=== PATIENT | male | born 1950 | race Caucasian/White ===

== ENCOUNTER 2018-11-25 01:45 | Emergency (ER) | payer OTHER, MEDICARE ==
--- NOTE | 2018-11-25 02:02 | ER Document Report ---
ED General - General Stated Complaint: FAST HEART RATE Time Seen by Provider: 11/25/18 01:51 Notes: Patient is a 68-year-old male who says that he woke up and felt like his heart was beating hard and fast. During this episode he felt a little bit of burning in his chest but did not have any actual chest pain. He called the events. He admits that he was in A. fib with RVR with rate going between 125 and 180. They gave him 25 mg of Cardizem and his rate became under control and his symptoms went away. Currently patient has no chest pain. He denies any palpitations. Says he feels well. He says he thinks he did have atrial fibrillation once before several years ago. He has not had it since then. He said that time he was briefly placed on amiodarone but was then taken off for a few months later because he had no recurrence of any arrhythmias. He does have history of coronary disease. He had cardiac stent placed in 2001. He also had 2 more stents placed in 2003. He denies any recurrent chest pain or difficulty breathing or symptoms leading up to this event tonight. He currently is chest pain-free and denies any difficulty breathing and says he feels well now that his heart rate is under control. No recent fevers or infections. - Related Data Allergies/Adverse Reactions: No Known Allergies Allergy (Unverified 11/25/18 04:13) Past Medical History - Social History Smoking Status: Unknown if Ever Smoked Frequency of alcohol use: None Drug Abuse: None Family History: Reviewed & Not Pertinent Review of Systems - Review of Systems Notes: My Normal Review Basic REVIEW OF SYSTEMS: CONSTITUTIONAL : Denies fever, chills, or sweats. Denies recent illness. EENT: Denies eye, ear, throat, or mouth pain or symptoms. Denies nasal or sinus congestion. CARDIOVASCULAR: Burning sensation in chest when heart rate was fast. RESPIRATORY: Denies cough, cold, or chest congestion. Denies shortness of breath, difficulty breathing, or wheezing. GASTROINTESTINAL: Denies abdominal pain. Denies nausea, vomiting, or diarrhea. MUSCULOSKELETAL: Denies neck or back pain or joint pain or swelling. SKIN: Denies rash or skin lesions. NEUROLOGICAL: Denies altered mental status or loss of consciousness. Denies headache. Denies weakness or paralysis or loss of use of either side. Denies problems with gait or speech. Denies sensory or motor loss. ALL OTHER SYSTEMS REVIEWED AND NEGATIVE. Physical Exam - Vital signs Vitals: Resp BP Pulse Ox 20 140/93 H 93 11/25/18 02:01 11/25/18 02:01 11/25/18 02:01 - Notes Notes: General Appearance: Well nourished, alert, cooperative, no acute distress, no obvious discomfort. Well-appearing Vitals: reviewed, See vital signs table. Head: no swelling or tenderness to the head Eyes: PERRL, EOMI, Conjuctiva clear Mouth: No decreasd moisture Lungs: No wheezing, No rales, No rhonci, No accessory muscle use, good air exchange bilaterally. Heart: Normal rate, Irregular rythm, No murmur, no rub Abdomen: Normal BS, soft, No rigidity, No abdominal tenderness, No guarding, no rebound, no abdominal masses, no organomegaly Extremities: strength 5/5 in all extremities, good pulses in all extremities, no swelling or tenderness in the extremities, no edema. Skin: warm, dry, appropriate color, no rash Neuro: speech clear, oriented x 3, normal affect, responds appropriately to questions. Course - Re-evaluation Re-evalutation: 11/25/18 04:41 EKG #2 is reviewed and interpreted by me. EKG shows atrial fibrillation with a rate of [address] segment elevation or depression. No ischemic T wave inversions. QRS duration and QT intervals are within normal range. 11/25/18 09:01 Patient's heart rate remained control his entire time here in the ER. Remained in A. fib with a normal rate. He denies any chest pain. Is been asymptomatic since arrival to the ED. I did not have to give any further medications. His troponin and delta troponin are negative. His chest x-ray is normal. Feel he is safe to be discharged home. His CHADDS2 score is 3. I therefore recommended anticoagulation to him. I talked about the risks and benefits of antico agulation and patient agrees to go forward with being started on Eliquis. I have given first dose here and he will get the prescription filled this morning to continue taking his medication. He is already on metoprolol 50 mg a day. I continue to encourage him to continue to take this to help with his rate control. He said he will call his third mate Tuesday morning to make a close follow-up appointment. Patient to return to ER if is any chest pain, difficulty breathing, recurrence of palpitations. Patient agrees with plan and will be discharged home. Dictation of this chart was performed using voice recognition software; therefore, there may be some unintended grammatical errors. - Vital Signs Vital signs: Temp Pulse Resp BP Pulse Ox 19 121/80 96 11/25/18 06:01 11/25/18 06:01 11/25/18 06:01 - Laboratory Result Diagrams: 11/25/18 02:20 11/25/18 02:20 Laboratory results interpreted by me: 11/25/18 11/25/18 02:20 02:20 Plt Count 149 L Monocytes % 15.6 H Potassium 3.5 L BUN 22 H Glucose 143 H Magnesium 1.4 L - EKG Interpretation by Me Additional EKG results interpreted by me: 11/25/18 02:01 EKG is reviewed and interpreted by me. EKG shows A. fib with a rate of [address] segment elevation or depression. No ischemic T wave inversions. QRS duration QT intervals are within normal range. No old EKG available for comparison. Discharge - Discharge Clinical Impression: Fibrillation, atrial Qualifiers: Atrial fibrillation type: persistent Qualified Code(s): I48.1 - Persistent atrial fibrillation Condition: Good Disposition: HOME, SELF-CARE Additional Instructions: You have an arrythmia called atrial fibrillation (A. fib). Because you have Afib you need to be on a blood thinning medication to help prevent formation of blood clots in your heart. This medication is called Eliquis. Please take the Eliquis as prescribed. please continue to take your daily aspirin. Please follow up with your heart doctor this coming week for reevaluation. Eliquis does increase your risk for bleeding. Please return to the ER immediately if you fall and hit your head, have abdominal pain, vomiting of blood, coughing of blood, or feel unwell. lease return to the ER immediately if you develop chest pain, difficulty breathing, or feel that your heat is beating rapidly. Prescriptions: Apixaban [Eliquis 5 mg Tablet] 5 mg PO BID #60 tablet
--- NOTE | 2018-11-25 02:30 | RADIOLOGY REPORT (SQ) ---
EXAM DESCRIPTION: XR CHEST 1 VIEW COMPLETED DATE/TME: 11/25/2018 02:00 CLINICAL HISTORY: 68 years Male, a. fib with RVR COMPARISON: None. NUMBER OF VIEWS/TECHNIQUE: 1/AP FINDINGS: Adequate lung volume, small left basilar atelectasis or scar, normal cardiac silhouette, and intact bony thorax. IMPRESSION: No acute cardiopulmonary findings.
[2018-11-25 02:31] LABS: ABSOLUTE EOSINOPHILS # (AUTO) 0.1 10^3/uL (0.0-0.6); ABSOLUTE LYMPHOCYTES (AUTO) 1.4 10^3/uL (0.5-4.7); ABSOLUTE MONOCYTES (AUTO) 0.7 10^3/uL (0.1-1.4); ABSOLUTE NEUT (AUTO) 2.3 10^3/uL (1.7-8.2); BASOPHILS % (AUTO) 0.9 % (0-2); EOSINOPHILS % (AUTO) 1.2 % (0-6); HEMATOCRIT 40.4 % (37.9-51.0); HEMOGLOBIN 14.2 g/dL (13.5-17.0); LYMPHOCYTES % (AUTO) 31.5 % (13-45); MEAN CORPUSCULAR HEMOGLOBIN 31.7 pg (27.0-33.4); MEAN CORPUSCULAR HGB CONC 35.1 g/dL (32.0-36.0); MEAN CORPUSCULAR VOLUME 90 fl (80-97); MONOCYTES % (AUTO) 15.6 % (3-13); PLATELET COUNT 149 10^3/uL (150-450); RED BLOOD COUNT 4.48 10^6/uL (4.35-5.55); RED CELL DISTRIBUTION WIDTH 13.7 % (11.5-14.0); SEGMENTED NEUTROPHILS % (AUTO) 50.8 % (42-78); TOTAL CELLS COUNTED % (AUTO) 100 %; WHITE BLOOD COUNT 4.6 10^3/uL (4.0-10.5)
[2018-11-25 02:43] LABS: ALANINE AMINOTRANSFERASE 21 U/L (21-72); ALBUMIN 3.8 g/dL (3.5-5.0); ALKALINE PHOSPHATASE 73 U/L (38-126); ANION GAP 13 (5-19); ASPARTATE AMINO TRANSFERASE 31 U/L (17-59); BILIRUBIN,DIRECT 0.2 mg/dL (0.0-0.4); BILIRUBIN,TOTAL 0.2 mg/dL (0.2-1.3); BLOOD UREA NITROGEN 22 mg/dL (7-20); CALCIUM 9.7 mg/dL (8.4-10.2); CARBON DIOXIDE 24 mmol/L (22-30); CHLORIDE 105 mmol/L (98-107); GLUCOSE 143 mg/dL (75-110); POTASSIUM 3.5 mmol/L (3.6-5.0); SODIUM 141.7 mmol/L (137-145); TOTAL PROTEIN 6.6 g/dL (6.3-8.2)
[2018-11-25] MEDS ORDERED: APIXABAN 5 MG TABLET PO ONE (05:41)
[2018-11-25 06:15] VITALS: BP 121/80
--- NOTE | 2018-11-25 12:43 | EKG REPORT ---
SEVERITY:- ABNORMAL ECG - BORDERLINE T ABNORMALITIES, ANTERIOR LEADS SINUS RHYTHM : Confirmed by: Kavitha Melendez MD 25-Nov-2018 12:42:48
== END 2018-11-25 06:18 | disposition home or self-care (01) ==
LOC: ER 01:45
DX: I48.1 Persistent atrial fibrillation (principal); R00.2 Palpitations; Z79.899 Other long term (current) drug therapy
CPT/HCPCS: 36415; 71045; 80053; 83735; 84484; 85025; 93005; 93010; 99285

== ENCOUNTER 2018-12-15 03:48 | Emergency (ER) | payer OTHER, MEDICARE ==
[2018-12-15 03:58] VITALS: BP 131/82
--- NOTE | 2018-12-15 07:14 | ER Document Report ---
ED General - General Chief Complaint: Foot Pain Stated Complaint: LEFT FOOT PAIN Time Seen by Provider: 12/15/18 06:23 TRAVEL OUTSIDE OF THE [place] IN LAST 30 DAYS: No - HPI Patient complains to provider of: Left foot pain Notes: Patient coming in for evaluation of the pain states ongoing for the last 2 days. Patient states some slight swelling was consistent with his gout flares in the past. Patient states most pain is in the top of the foot and base of the ankle. Patient denies any trauma denies any fevers chills nausea vomiting diarrhea patient states the pain is worse with ambulating. 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 - Related Data Allergies/Adverse Reactions: No Known Allergies Allergy (Unverified 11/25/18 04:13) Past Medical History - Social History Smoking Status: Unknown if Ever Smoked Family History: Reviewed & Not Pertinent - Past Medical History Cardiac Medical History: Reports: Hx Hypertension Endocrine Medical History: Reports: Hx Diabetes Mellitus Type 2 Renal/ Medical History: Denies: Hx Peritoneal Dialysis Past Surgical History: Reports: Hx Cardiac Surgery, Hx Orthopedic Surgery - RBKA Review of Systems - Review of Systems Constitutional: No symptoms reported EENT: No symptoms reported Cardiovascular: No symptoms reported Respiratory: No symptoms reported Gastrointestinal: No symptoms reported Genitourinary: No symptoms reported Male Genitourinary: No symptoms reported Musculoskeletal: No symptoms reported Skin: No symptoms reported Hematologic/Lymphatic: No symptoms reported Neurological/Psychological: No symptoms reported Physical Exam - Vital signs Vitals: Temp Pulse Resp BP Pulse Ox 98 F 106 H 16 131/82 H 96 12/15/18 03:56 12/15/18 03:56 12/15/18 03:56 12/15/18 03:56 12/15/18 03:56 Interpretation: Normal - General General appearance: Appears well, Alert - HEENT Head: Normocephalic, Atraumatic Eyes: Normal Pupils: PERRL - Respiratory Respiratory status: No respiratory distress Chest status: Nontender Breath sounds: Normal Chest palpation: Normal - Cardiovascular Rhythm: Regular Heart sounds: Normal auscultation Murmur: No - Abdominal Inspection: Normal Distension: No distension Bowel sounds: Normal Tenderness: Nontender Organomegaly: No organomegaly - Back Back: Normal, Nontender - Extremities General upper extremity: Normal inspection, Nontender, Normal color, Normal ROM, Normal temperature General lower extremity: Nontender, Normal color, Normal ROM, Normal temperature, Normal weight bearing. No: Normal inspection - Right BKA patient's left ankle is slightly warm on the dorsum of the foot there is no signs of cellulitis or infection there is some slight swelling, Scott's sign - Neurological Neuro grossly intact: Yes Cognition: Normal Orientation: AAOx4 Boy Coma Scale Eye Opening: Spontaneous [place] Coma Scale Verbal: Oriented Boy Coma Scale Motor: Obeys Commands [place] Coma Scale Total: 15 Speech: Normal Motor strength normal: LUE, RUE, LLE, RLE Sensory: Normal - Psychological Associated symptoms: Normal affect, Normal mood - Skin Skin Temperature: Warm Skin Moisture: Dry Skin Color: Normal Course - Re-evaluation Re-evalutation: 12/15/18 14:52 Examination the patient's foot does not reveal any signs of infection there is some slight erythema possibly consistent stent with a beginning of a gout flare. Patient states this is similar to her flares in the past therefore did recommend treatment with Tylenol ice rest change in diet will give Ultram for severe pain. Patient is on Eliquis at this time will hold off any NSAID therapy. Patient states understanding also states understanding to follow-up PCP - Vital Signs Vital signs: Temp Pulse Resp BP Pulse Ox 98 F 106 H 16 131/82 H 96 12/15/18 03:56 12/15/18 03:56 12/15/18 03:56 12/15/18 03:56 12/15/18 03:56 Discharge - Discharge Clinical Impression: Ankle pain Condition: Good Disposition: HOME, SELF-CARE Instructions: Gout ([facility]), Gout Diet ([facility]), Ice & Elevation ([facility]), Oral Narcotic Medication ([facility]) Additional Instructions: Take Ultram and Tylenol tablet with your pain follow-up with your primary care physician today call them to schedule appointment on Tuesday. Prescriptions: Acetaminophen [Pain & Fever] 1,000 mg PO Q6 PRN #30 tablet PRN Reason: Tramadol HCl [Ultram 50 mg Tablet] 50 mg PO ASDIR PRN #20 tablet PRN Reason:
== END 2018-12-15 07:28 | disposition home or self-care (01) ==
LOC: ER 03:48
DX: M25.572 Pain in left ankle and joints of left foot (principal); M79.672 Pain in left foot; L53.9 Erythematous condition, unspecified; Z89.511 Acquired absence of right leg below knee; M79.89 Other specified soft tissue disorders; E11.9 Type 2 diabetes mellitus without complications; I10 Essential (primary) hypertension; Z79.01 Long term (current) use of anticoagulants
CPT/HCPCS: 99283

== ENCOUNTER 2019-01-23 23:08 | Emergency (ER) | payer OTHER, MEDICARE ==
--- NOTE | 2019-01-24 01:50 | ER Document Report ---
ED General - General Chief Complaint: Wrist Pain Stated Complaint: WRIST INJURY Time Seen by Provider: 01/24/19 01:23 TRAVEL OUTSIDE OF THE [place] IN LAST 30 DAYS: No - HPI Notes: Patient is a 68-year-old male that presents to the emergency department for chief complaint of left wrist pain. Patient reports increasing pain in his left wrist over the last few days. He has been wearing a cockup wrist splint and taking extra strength Tylenol with minimal improvement of his symptoms. He states he has a history of gout but has never had it anywhere but his feet. He did take prednisone 20 mg this morning because he was concerned that his wrist pain may be from gout. He states this did not help as well. He denies any fevers or chills. He states the pain is sharp and worse with movement. He states it has become more swollen today with increased redness. He is a type II diabetic and states his blood glucose has been running around 109 today. He denies any direct injury to the wrist but states he types often which has been irritating recently. Past Medical History: Diabetes, gout Past Surgical History: Reviewed in chart Social History: Denies tobacco and alcohol use Family History: Reviewed and noncontributory for presenting illness Allergies: Reviewed, see documented allergy list. REVIEW OF SYSTEMS: CONSTITUTIONAL : No fever No chills No diaphoresis No recent illness EENT: No vision changes No congestion No sore throat CARDIOVASCULAR: No chest pain No palpitations RESPIRATORY: No shortness of breath No cough No difficulty breathing GASTROINTESTINAL: No abdominal pain No nausea No vomiting No diarrhea GENITOURINARY: No dysuria No hematuria No difficulty urinating MUSCULOSKELETAL: No back pain No leg pain Left wrist pain SKIN: No rashes No lesions LYMPHATIC: No swollen, enlarged glands. NEUROLOGICAL: No lightheadedness No headache No weakness No paresthesias PSYCHIATRIC: No anxiety No depression PHYSICAL EXAMINATION: Vital signs reviewed, nursing noted reviewed. GENERAL: Well-appearing, well-nourished and in no acute distress. HEAD: Atraumatic, normocephalic. EYES: Eyes appear normal, extraocular movements intact, sclera anicteric, conjunctiva are normal. ENT: nares patent, oropharynx clear without exudates. Moist mucous membranes. NECK: Normal range of motion, supple without lymphadenopathy LUNGS: Breath sounds clear to auscultation bilaterally and equal. No wheezes rales or rhonchi. HEART: Regular rate and rhythm without murmurs ABDOMEN: Soft, nontender, normoactive bowel sounds. No rebound, guarding, or rigidity. No masses appreciated. EXTREMITIES: Left wrist tenderness to palpation diffusely and with range of motion. Limited range of motion to left wrist secondary to pain, erythema to left wrist with mild calor. No bony deformity. Normal left elbow exam. No left hand or digit tenderness. NEUROLOGICAL: No focal neurological deficits. Moves all extremities spontaneously Motor and sensory grossly intact on exam. PSYCH: Normal mood, normal affect. SKIN: Warm, Dry, normal turgor, erythema to left wrist - Related Data Allergies/Adverse Reactions: No Known Allergies Allergy (Unverified 11/25/18 04:13) Past Medical History - Social History Smoking Status: Never Smoker Family History: Reviewed & Not Pertinent - Past Medical History Cardiac Medical History: Reports: Hx Hypertension Endocrine Medical History: Reports: Hx Diabetes Mellitus Type 2 Renal/ Medical History: Denies: Hx Peritoneal Dialysis Past Surgical History: Reports: Hx Cardiac Surgery, Hx Orthopedic Surgery - RBKA Physical Exam - Vital signs Vitals: Temp Pulse Resp BP Pulse Ox 98.3 F 82 18 186/92 H 93 01/23/19 23:14 01/23/19 23:14 01/23/19 23:14 01/23/19 23:14 01/23/19 23:14 Course - Re-evaluation Re-evalutation: 01/24/19 01:50 Vitals reviewed. Nursing notes reviewed. Patient is afebrile and nontoxic in appearance. He does have a history of diabetes increasing his risk of septic ar thritis. He took Tylenol just prior to coming into the emergency room and states he is driving therefore he does not want any more pain medication currently. He has no history of gout in his wrist and lab work will be obtained to evaluate for possible underlying septic arthritis. 01/24/19 03:25 Patient's lab work shows very slight elevation of his WBC count which may be related to the prednisone he took at home. He has a normal CRP. His ESR is normal for age adjusted values. X-ray shows arthritis with no periosteal changes to suggest osteomyelitis. Given patient's clinical picture and lab work I do not currently suspect septic arthritis. He will be started on prednisone and [place] for his acute gouty flare. He was given a dose of colchicine in the emergency room. Patient was counseled on returning to the emergency room for increased pain, swelling, redness or fevers. He will otherwise follow with primary care for close outpatient reevaluation. Laboratory 01/24/19 01/24/19 02:12 02:12 WBC 12.3 H RBC 4.74 Hgb 15.1 Hct 43.3 MCV 92 MCH 31.9 MCHC 34.8 RDW 14.4 H Plt Count 205 Seg Neutrophils % 71.0 Lymphocytes % 17.0 Monocytes % 11.1 Eosinophils % 0.4 Basophils % 0.5 Absolute Neutrophils 8.8 H Absolute Lymphocytes 2.1 Absolute Monocytes 1.4 Absolute Eosinophils 0.1 Absolute Basophils 0.1 ESR 36 H Sodium 138.8 Potassium 4.2 Chloride 102 Carbon Dioxide 24 Anion Gap 13 BUN 31 H Creatinine 1.04 Est GFR ( Amer) > 60 Est GFR (Non-Af Amer) > 60 Glucose 137 H Calcium 10.3 H Total Bilirubin 0.3 Direct Bilirubin 0.3 Neonat Total Bilirubin Not Reportable Neonat Direct Bilirubin Not Reportable Neonat Indirect Bili Not Reportable AST 14 L ALT 28 Alkaline Phosphatase 65 C-Reactive Protein 8.8 Total Protein 8.0 Albumin 4.8 Wrist X-Ray 01/24/19 01:45 IMPRESSION: Degenerative change radiocarpal joint copyright 2011 [employer]- All Rights Reserved - Vital Signs Vital signs: Temp Pulse Resp BP Pulse Ox 98.3 F 82 18 186/92 H 93 01/23/19 23:14 01/23/19 23:14 01/23/19 23:14 01/23/19 23:14 01/23/19 23:14 - Laboratory Result Diagrams: 01/24/19 02:12 01/24/19 02:12 Laboratory results interpreted by me: 01/24/19 01/24/19 02:12 02:12 WBC 12.3 H RDW 14.4 H Absolute Neutrophils 8.8 H ESR 36 H BUN 31 H Glucose 137 H Calcium 10.3 H AST 14 L Discharge - Discharge Clinical Impression: Gout of wrist Qualifiers: Gout etiology: other secondary cause Chronicity: acute Laterality: left Qualified Code(s): M10.432 - Other secondary gout, left wrist Condition: Stable Disposition: HOME, SELF-CARE Instructions: Gout ([facility]), Gout Diet ([facility]), Family Physicians / Practices Additional Instructions: Please return to the emergency department if you have any worsening, or concern of your symptoms. Please return to the emergency department if you develop chest pain, difficulty breathing, severe abdominal pain, or ongoing vomiting. Please follow-up with your primary care physician in 2-3 days and any other recommended physicians. If prescribed, take all medications as directed. If you have any questions or concerns do not hesitate to return the emergency department for evaluation. Keep your wrist elevated and use ice to help with the swelling The prednisone will elevate your blood sugar so while you are taking it you need to abide by a good diabetic diet and monitor your blood sugar at home daily. If you develop increased redness, pain, swelling, or fevers please return to the emergency room for further evaluation Prescriptions: Prednisone [Deltasone 20 mg Tablet] 2 tab PO DAILY 5 Days tablet
[2019-01-24 02:27] LABS: ABSOLUTE BASOPHILS # (AUTO) 0.1 10^3/uL (0.0-0.2); ABSOLUTE EOSINOPHILS # (AUTO) 0.1 10^3/uL (0.0-0.6); ABSOLUTE LYMPHOCYTES (AUTO) 2.1 10^3/uL (0.5-4.7); ABSOLUTE MONOCYTES (AUTO) 1.4 10^3/uL (0.1-1.4); ABSOLUTE NEUT (AUTO) 8.8 10^3/uL (1.7-8.2); BASOPHILS % (AUTO) 0.5 % (0-2); EOSINOPHILS % (AUTO) 0.4 % (0-6); HEMATOCRIT 43.3 % (37.9-51.0); HEMOGLOBIN 15.1 g/dL (13.5-17.0); MEAN CORPUSCULAR HEMOGLOBIN 31.9 pg (27.0-33.4); MEAN CORPUSCULAR HGB CONC 34.8 g/dL (32.0-36.0); MEAN CORPUSCULAR VOLUME 92 fl (80-97); MONOCYTES % (AUTO) 11.1 % (3-13); PLATELET COUNT 205 10^3/uL (150-450); RED BLOOD COUNT 4.74 10^6/uL (4.35-5.55); RED CELL DISTRIBUTION WIDTH 14.4 % (11.5-14.0); TOTAL CELLS COUNTED % (AUTO) 100 %; WHITE BLOOD COUNT 12.3 10^3/uL (4.0-10.5)
--- NOTE | 2019-01-24 02:43 | RADIOLOGY REPORT (SQ) ---
EXAM DESCRIPTION: XR WRIST 3 OR MORE VIEWS COMPLETED DATE/TME: 01/24/2019 01:45 CLINICAL HISTORY: 68 years, Male, wrist pain COMPARISON: None. NUMBER OF VIEWS: 4 TECHNIQUE: 4 view left wrist LIMITATIONS: None. FINDINGS: Negative for acute fracture or dislocation. Degenerative changes of the radiocarpal joint. Soft tissues are unremarkable IMPRESSION: Degenerative change radiocarpal joint copyright 2010 [employer]- All Rights Reserved
[2019-01-24 02:53] LABS: ALANINE AMINOTRANSFERASE 28 U/L (21-72); ALBUMIN 4.8 g/dL (3.5-5.0); ALKALINE PHOSPHATASE 65 U/L (38-126); ANION GAP 13 (5-19); ASPARTATE AMINO TRANSFERASE 14 U/L (17-59); BILIRUBIN,DIRECT 0.3 mg/dL (0.0-0.4); BILIRUBIN,TOTAL 0.3 mg/dL (0.2-1.3); BLOOD UREA NITROGEN 31 mg/dL (7-20); C-REACTIVE PROTEIN 8.8 mg/L (<10.0); CALCIUM 10.3 mg/dL (8.4-10.2); CARBON DIOXIDE 24 mmol/L (22-30); CHLORIDE 102 mmol/L (98-107); GLUCOSE 137 mg/dL (75-110); POTASSIUM 4.2 mmol/L (3.6-5.0); SODIUM 138.8 mmol/L (137-145)
[2019-01-24 03:03] LABS: ERYTHROCYTE SEDIMENTATION RATE 36 mm/hr (0-20)
[2019-01-24] MEDS ORDERED: HYDROCODONE/ACETAMINOPHEN 5-325 MG (6 TAB/ER DISP) PO PRN (03:22)
[2019-01-24] MEDS ORDERED: COLCHICINE 0.6 MG TABLET PO ONE (03:23)
[2019-01-24 03:37] VITALS: BP 147/82
== END 2019-01-24 03:37 | disposition home or self-care (01) ==
LOC: ER 23:08
DX: M10.432 Other secondary gout, left wrist (principal); E11.9 Type 2 diabetes mellitus without complications; I10 Essential (primary) hypertension; Z89.511 Acquired absence of right leg below knee
CPT/HCPCS: 36415; 80053; 85025; 85652; 86140; 87040; 99283

== ENCOUNTER 2019-05-25 01:03 | Emergency (ER) | payer OTHER, MEDICARE ==
--- NOTE | 2019-05-25 04:04 | ER Document Report ---
HPI - HPI Time Seen by Provider: 05/25/19 03:53 Pain Level: 4 Context: Patient is a 69-year-old male that comes to the emergency department for chief complaint of left wrist pain. He states his wrist has become painful with movement and some subtle swelling that he noticed over the past 2 to 3 days. Pain will occasionally shoot into his fifth digit and occasionally shoot up his forearm. He denies any other complaints. He denies injury, fever/chills, wound. He does have a history of gout but states this does not feel nearly as bad. He also has a history of atrial fibrillation and DVT, on Eliquis. He is on oral medications for type 2 diabetes. - REPRODUCTIVE Reproductive: DENIES: : Past Medical History - General Information source: Patient - Social History Smoking Status: Never Smoker Frequency of alcohol use: None Drug Abuse: None Lives with: Family Family History: Reviewed & Not Pertinent - Past Medical History Cardiac Medical History: Reports: Hx Hypertension Endocrine Medical History: Reports: Hx Diabetes Mellitus Type 2 Renal/ Medical History: Denies: Hx Peritoneal Dialysis Past Surgical History: Reports: Hx Cardiac Surgery, Hx Orthopedic Surgery - RBKA Vertical Provider Document - CONSTITUTIONAL General Appearance: WD/WN, No Apparent Distress - INFECTION CONTROL TRAVEL OUTSIDE OF THE [place] IN LAST 30 DAYS: No - HEENT HEENT: Atraumatic, Normal ENT Exam, Normocephalic - NECK Neck: Normal Inspection - RESPIRATORY Respiratory: Breath Sounds Normal, No Respiratory Distress - CARDIOVASCULAR Cardiovascular: Regular Rate, Regular Rhythm - GI/ABDOMEN Gastrointestinal: Abdomen Soft, Abdomen Non-Tender - BACK Back: Normal Inspection - MUSCULOSKELETAL/EXTREMETIES Musculoskeletal/Extremeties: Tender - Left wrist with tenderness over the ulna but no snuffbox tenderness, no overt swelling. Normal capillary refill and sensation, normal radial pulse. Pain with range of motion of the wrist but no severe pain. Normal forearm and elbow exam. Right BKA, otherwise unremarkable lower extremity exam. - NEURO Level of Consciousness: Awake, Alert, Appropriate Motor/Sensory: No Motor Deficit, No Sensory Deficit - DERM Integumentary: Warm, Dry, No Rash Course - Re-evaluation Re-evalutation: Patient with some tenderness over the ulnar wrist but no snuffbox tenderness, no notable swelling of the soft tissue, he can move his wrist but with some pain. There is no abnormal heat or erythema, no signs of trauma. Exam does not suggest gout or septic arthritis. X-ray negative for acute findings. Most likely tendinitis versus nerve pain. Elbow examination seems normal. Remaining physical exam is unremarkable. Discussed results with patient. Patient states that it hurts so much at night that he cannot sleep. He cannot take anti-inflammatories because of his cardiac history and blood thinner. He is a diabetic and would prefer to avoid prednisone. As result patient was placed in a wrist splint (air splint), provided with pain medicine to help him sleep, stool softeners, orthopedic follow-up, and return precautions. Patient states understanding and agreement. - Vital Signs Vital signs: Temp Pulse Resp BP Pulse Ox 98 F 65 16 151/94 H 94 05/25/19 01:05/25/19 01:05/25/19 01:05/25/19 01:05/25/19 01:26 Procedures - Immobilization Left wrist Pre-Proc Neuro Vasc Exam: Normal Immobilizer type: Cock-up Performed by: PCT Post-Proc Neuro Vasc Exam: Normal Alignment checked and good: Yes Discharge - Discharge Clinical Impression: Left wrist pain Condition: Stable Disposition: HOME, SELF-CARE Additional Instructions: The x-ray does not show any concerning abnormality. Your examination is most suggestive of tendinitis or referred pain from the nerve although this is not definite. Ice the area, wear the supportive brace. Take Tylenol for pain, if needed take the pain medication for more severe pain or to help you sleep. Follow-up closely with orthopedics for additional management. If you do take the pain medication take the stool softener to avoid constipation. Return if you worsen including increased swelling, developing redness, fever/chills, or any other concerning or worsening symptoms. Prescriptions: Docusate Sodium [Colace 100 mg Capsule] 100 mg PO ASDIR PRN #30 capsule PRN Reason: Oxycodone HCl/Acetaminophen [Percocet 5-325 mg Tablet] 1 - 2 tab PO Q4H PRN #10 tablet PRN Reason: Referrals: BENITEZ MAI DO [ACTIVE STAFF] - Follow up in 1 week
--- NOTE | 2019-05-25 04:53 | RADIOLOGY REPORT (SQ) ---
Left wrist three view on 05/25/2019 at 4:26 AM CLINICAL INDICATION: Wrist pain COMPARISON: None FINDINGS: There are no fractures. Visualized joints are well aligned. No bony abnormality is noted. IMPRESSION: No acute abnormality.
[2019-05-25] MEDS ORDERED: HYDROCODONE/ACETAMINOPHEN 5-325 MG (6 TAB/ER DISP) PO PRN (05:00)
[2019-05-25 05:41] VITALS: BP 138/88
== END 2019-05-25 05:41 | disposition home or self-care (01) ==
LOC: ER 01:03
DX: M25.532 Pain in left wrist (principal); I48.91 Unspecified atrial fibrillation; Z86.718 Personal history of other venous thrombosis and embolism; Z79.02 Long term (current) use of antithrombotics/antiplatelets; Z87.39 Personal history of other diseases of the musculoskeletal system and connective tissue; E11.9 Type 2 diabetes mellitus without complications; Z79.84 Long term (current) use of oral hypoglycemic drugs; I10 Essential (primary) hypertension
CPT/HCPCS: 99283; 73110; L3908